=== PATIENT | male | born 1955 | race Caucasian/White ===

== ENCOUNTER 2017-12-17 07:51 | Outpatient (RCR) | payer BC, SELFPAY ==
--- NOTE | 2017-12-17 10:11 | HMH.PTOPEV ---
PT Outpatient Evaluation Rehab PT Outpatient Evaluation Start: 12/17/17 08:05 Freq: Status: Active Protocol: Document 12/17/17 09:59 PHORNE (Rec: 12/17/17 10:11 PHORNE [id number]) Electronically Signed By Lui Vasquez, PT 12/17/17 09:59 Outpatient Therapy Subjective History Subjective History Pt is 62 yowm who presents with c/o vertigo for many years, but much worse over the past few wks. He reports his symptoms are usually worse at night and worse on the left side. He reports some nausea associated with his vertigo. He reports hx of HTN controleld with medication, Krishna tinnitus worse on left, sleep apnea requiring C-PAP, DM-II. Symptom Type Other Symptoms Relieved By Nothing Symptoms Aggravated By Twisting Prior Functional Limitations None Current Functional Limitations None Symptom Description Constant but Variable Level of pain today (0-10) 0 Pain scale - at its worst (0-10) 0 Balance Eval Chief Complaint vertigo Yes Did you feel dizzy, unsteady or faint? Yes Activity at onset constant, but worse with quick head turns. Nystagmus Nystagmus Presence None Oculomotor Gaze Oculomotor Gaze Nml: Vergence Smooth Pursuit VOR Cancellation Cover/Uncover Cross Cover Abn: Saccades [place] Feet Together/Eyes open/Stable Surface pass Feet Together/Eyes Closed/Stable Surface pass Feet Together/Eyes open/Unstable Surface pass Feet Together/Eyes Closed/Unstable pass Surface Outpatient Therapy Assessment Impairments Problems/Impairmments Impaired Balance Prognosis Rehab Potential Fair Clinical Impression Consistent with Diagnosis Yes Short Term Goals Number of Weeks 4 Increase Ability to Walk Yes: with less dizziness. 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
== END 2017-12-17 08:00 | disposition home or self-care (01) ==
LOC: PT 07:51
PROVIDERS: Visit Provider Family Medicine
DX: H81.399 Other peripheral vertigo, unspecified ear (principal)
CPT/HCPCS: 97112; 97163

== ENCOUNTER → 2019-04-24 12:04 | Outpatient (CLI) | payer OTHER, SELFPAY ==
--- NOTE | 2019-04-24 12:32 | XR_ITS ---
PROCEDURE: XR CHEST 2V Patient Age:63Y CLINICAL HISTORY: VIRAL BRONCHITIS Cough and fever COMPARISON: CXR CHEST(2 VIEWS-NOT PORTABLE) from 06/09/2013 FINDINGS: PA and lateral chest performed today The lungs are well expanded and clear with no significant change or new findings when compared to May 2013. The heart is upper normal in size with slight left ventricular configuration. The pulmonary vascularity upper normal in prominence. Stable calcified granuloma towards the right lung base minimal linear scarring is seen at the posterior aspect of lower lobes. Lung monahan reveal no focal infiltrates, suspicious nodules, or pleural effusions. No acute bony abnormalities. Stable IMPRESSION: Stable chest with nothing definitely acute . Lungs clear. Mild hyperexpansion; minor chronic changes Dictated by: Clay Flores MD 04/24/2019 13:30 Electronically signed by Clay Flores MD in [facility] 04/24/2019 13:30
== END ==
PROVIDERS: PCP Family Medicine; Visit Provider Family Medicine
DX: J20.8 Acute bronchitis due to other specified organisms (principal)
CPT/HCPCS: 71046

== ENCOUNTER → 2019-04-29 13:15 | Outpatient (CLI) | payer OTHER, SELFPAY ==
[2019-04-29 13:21] LABS: Adenovirus,PCR Not Detected (NotDetected); Bordetella Pertussis Not Detected (NotDetected); Chlamydophila Pneumoniae, PCR Not Detected (NotDetected); Coronavirus 229E Not Detected (NotDetected); Coronavirus NL63 Not Detected (NotDetected); Coronavirus OC43 Not Detected (NotDetected); Coronovirus HKU1,PCR Not Detected (NotDetected); Human Metapneumovirus Not Detected (NotDetected); Influenza A, PCR Not Detected (NotDetected); Influenza AH1, 2009 Not Detected (NotDetected); Influenza AH1, PCR Not Detected (NotDetected); Influenza AH3,PCR Not Detected (NotDetected); Mycoplasma Pneumoniae, PCR Not Detected (NotDetected); Parainfluenza 1, PCR Not Detected (NotDetected); Parainfluenza 2, PCR Not Detected (NotDetected); Parainfluenza 3, PCR Not Detected (NotDetected); Parainfluenza 4, PCR Not Detected (NotDetected); Respiratory Syncytial Virus Not Detected (NotDetected); Rhinovirus/Enterovirus Not Detected (NotDetected)
[2019-04-29 13:28] LABS: Basophils % 0.2 % (0.1-2.0); Eosinophils # 0.1 K/mm3 (0.0-0.4); Hematocrit 41.2 % (42.0-52.0); Hemoglobin 14.3 g/dL (14.1-18.0); Lymphocytes % 44.1 % (10-50); Mean Corpuscular HGB Conc 34.8 g/dL (31.8-35.4); Mean Corpuscular Hemoglobin 32.2 pg (27.0-31.2); Mean Corpuscular Volume 92.6 fl (80-94); Mean Platelet Volume 8.2 fl (7.4-10.4); Monocytes # 0.2 K/mm3 (0.1-1.0); Monocytes % 9.8 % (1.7-9.3); Neutrophils # 0.9 K/mm3 (1.8-7.8); Neutrophils % 39.9 % (37.0-80.0); Platelet Count 163 K/mm3 (142-424); Red Blood Count 4.45 M/mm3 (4.60-6.20); Red Cell Distribution Width 13.1 % (11.5-17.5); White Blood Count 2.4 K/mm3 (4.8-10.8)
[2019-04-29 15:55] LABS: Influenza B, PCR Detected (NotDetected)
== END ==
PROVIDERS: Visit Provider Family Medicine
DX: J45.909 Unspecified asthma, uncomplicated (principal); J20.8 Acute bronchitis due to other specified organisms
CPT/HCPCS: 36415; 85025; 87486; 87581; 87633; 87798

== ENCOUNTER → 2020-11-06 11:27 | Outpatient (CLI) | payer BC, SELFPAY | PROVIDERS: PCP Family Medicine; Visit Provider Nurse Practitioner | DX: Z20.822 Contact with and (suspected) exposure to COVID-19 (principal) | CPT/HCPCS: C9803; U0003; U0005 ==

== ENCOUNTER → 2020-11-09 08:04 | Outpatient (CLI) | payer BC, SELFPAY | PROVIDERS: PCP Family Medicine; Visit Provider Nurse Practitioner | DX: Z20.822 Contact with and (suspected) exposure to COVID-19 (principal) | CPT/HCPCS: C9803; U0003; U0005 ==

== ENCOUNTER → 2021-05-03 10:16 | Outpatient (CLI) | payer BC, SELFPAY ==
[2021-05-03 10:52] LABS: Basophils # 0.1 K/mm3 (0-0.2); Basophils % 2.1 % (0.1-2.0); Eosinophils # 0.2 K/mm3 (0.0-0.4); Hematocrit 45.6 % (42.0-52.0); Hemoglobin 14.8 g/dL (14.1-18.0); Lymphocytes # 1.4 K/mm3 (0.7-4.5); Lymphocytes % 25.9 % (10-50); Mean Corpuscular HGB Conc 32.4 g/dL (31.8-35.4); Mean Corpuscular Hemoglobin 31.5 pg (27.0-31.2); Mean Corpuscular Volume 97.3 fl (80-94); Mean Platelet Volume 8.7 fl (7.4-10.4); Monocytes # 0.6 K/mm3 (0.1-1.0); Monocytes % 11.4 % (1.7-9.3); Neutrophils % 57.5 % (37.0-80.0); Platelet Count 207 K/mm3 (142-424); Red Blood Count 4.69 M/mm3 (4.60-6.20); Red Cell Distribution Width 13.4 % (11.5-17.5); White Blood Count 5.3 K/mm3 (4.8-10.8)
== END ==
PROVIDERS: PCP Family Medicine; Visit Provider Physician Assistant
DX: Z20.822 Contact with and (suspected) exposure to COVID-19 (principal)
CPT/HCPCS: 36415; 85025; C9803; U0003; U0005

== ENCOUNTER → 2022-08-17 09:34 | Outpatient (CLI) | payer MEDICARE, SELFPAY ==
[2022-08-17 10:23] LABS: Hemoglobin A1C 7.4 % (4.0-6.0)
[2022-08-17 10:25] LABS: Alanine Aminotransferase 33 U/L (12-78); Albumin Level 4.1 g/dl (3.5-5.0); Albumin/Globulin Ratio 1.5 (1.1-1.8); Alkaline Phosphatase 38 U/L (38-126); Anion Gap 13.9 mEq/L (5-15); Aspartate Amino Transferase 37 U/L (17-59); Bilirubin,Total 0.5 mg/dl (0.2-1.3); Blood Urea Nitrogen 17 mg/dl (9-20); Calcium 9.2 mg/dl (8.4-10.2); Carbon Dioxide 29 mmol/L (22.0-30.0); Chloride 102 mmol/L (98-107); Chol/HDL Ratio 3.5 (1-3.5); Cholesterol 146 mg/dl (140-200); Estimated Glomerular Filt Rate 67 ml/min (>60); GFR (African American) 81 ML/MIN (>60); Globulin 2.7 g/dL (1.3-3.2); Glucose 141 mg/dl (74-100); HDL Cholesterol 42 mg/dl (40-60); Potassium 4.9 mmoL/L (3.5-5.1); Sodium 140 mmol/L (136-145); Total Protein,Serum 6.8 g/dl (6.3-8.2); Triglycerides 241 mg/dl (30-150); VLDL Cholesterol 48 mg/dL (0-40)
[2022-08-17 10:42] LABS: Direct LDL Cholesterol 63.22 mg/dL (100-129)
[2022-08-17 10:55] LABS: Prostate Specific Ag Screen 3.6 ng/ml (0.0-4.0)
== END ==
PROVIDERS: PCP Family Medicine; Visit Provider Physician Assistant
DX: E11.9 Type 2 diabetes mellitus without complications (principal); E78.2 Mixed hyperlipidemia; N40.0 Benign prostatic hyperplasia without lower urinary tract symptoms; Z79.84 Long term (current) use of oral hypoglycemic drugs
CPT/HCPCS: 36415; 80053; 80061; 83036; G0103

== ENCOUNTER 2022-11-23 06:46 | Emergency (ER) | payer MEDICARE, OTHER, SELFPAY ==
[2022-11-23 06:55] VITALS: BP 173/89; PULSE 60; RESP 16; TEMP 36.7; O2SAT 97; BMI 27.2
--- NOTE | 2022-11-23 07:06 | PC.NURSE ---
Dr. Melendez at [facility] for pt eval
--- NOTE | 2022-11-23 07:22 | XR_ITS ---
PROCEDURE INFORMATION: Exam: XR Left Humerus Exam date and time: 11/23/2022 7:23 AM Age: 67 years old Clinical indication: Pain; Shoulder; Left; Additional info: L shoulder pain/popping TECHNIQUE: Imaging protocol: Radiologic exam of the left humerus. Views: 2 or more views. COMPARISON: CR Shoulder L 11/23/2022 7:21 AM FINDINGS: Bones/joints: No acute osseous abnormality. No acute fracture. No dislocation. Soft tissues: No significant soft tissue abnormalities. IMPRESSION: No acute abnormality demonstrated.
--- NOTE | 2022-11-23 07:22 | XR_ITS ---
PROCEDURE INFORMATION: Exam: XR Left Shoulder Exam date and time: 11/23/2022 7:21 AM Age: 67 years old Clinical indication: Pain; Shoulder; Left; Additional info: L shoulder pain/popping TECHNIQUE: Imaging protocol: Radiologic exam of the left shoulder. Views: 2 or more views. COMPARISON: CR XR CHEST 2V 04/24/2019 12:27 PM FINDINGS: Bones/joints: No acute osseous abnormality. No evidence of acute fracture or dislocation. [id number] left AC joint arthrosis with hypertrophic bony spurring. Mild left glenohumeral degenerative bony changes. Soft tissues: No significant soft tissue abnormalities. IMPRESSION: Xjpe-qy-[id number] left AC joint arthrosis and degenerative bony changes.
--- NOTE | 2022-11-23 07:26 | HMH.EDGENADL ---
Discharge Plan Disposition Patient Disposition: Home, Self-Care Condition: Good Prescriptions Prescriptions: No Action fenofibrate nanocrystallized 145 mg tablet 145 mg PO DAILY 90 Days Qty: 90 hydrochlorothiazide 12.5 mg tablet 12.5 mg PO DAILY 90 Days Qty: 90 metformin 500 mg tablet extended release 24 hr 500 mg PO BID 90 Days Qty: 180 potassium citrate 15 mEq tablet extended release 15 meq PO BID 90 Days Qty: 180 atorvastatin 20 mg tablet 20 mg PO QHS 90 Days Qty: 90 montelukast 10 mg tablet 10 mg PO QHS 90 Days Qty: 90 multivitamin tablet 1 tab PO QAM cholecalciferol (vitamin D3) 4,000 unit capsule 4,000 unit PO DAILY ipratropium-albuterol 0.5 mg-3 mg(2.5 mg base)/3 mL solution for nebulization 3 ml INHALATION ONCE PRN (Reason: asthma) ipratropium-albuterol 18-103 mcg/actuation aerosol 1 spray INHALATION ONCE PRN (Reason: Nasal Congestion) diphenhydramine HCl [Benadryl] 25 mg capsule 25 mg PO QHS PRN (Reason: allergies) Referrals Follow up/Referrals: Chas Corea DO [Staff Physician] - See instructions (Rotator cuff pathology) Saji Villalobos MD [Primary Care Provider] - See instructions Activity Restrictions/Add. Instructions Additional Instructions/Restrictions: Please follow-up with your primary care provider. Please return to the emergency department if you develop any new or worsening symptoms or become concerned for your health. You have been given follow-up with orthopedic surgery, please call them on Friday to schedule an appointment. As we discussed, you can continue with Tylenol, ibuprofen as needed for pain control. You can also continue to use lidocaine patches. Clinical Impressions Clinical Impression: Left shoulder pain Qualifiers: Chronicity: chronic Qualified Code(s): M25.512 - Pain in left shoulder Instructions Patient Instructions: DI for Shoulder Pain Discharge ED Provider: Roger Melendez I General Adult HPI General Chief complaint: Extremity Injury, Upper Stated complaint: AO 11/22/22 1800 Injury left shoulder Time Seen by Provider: 11/23/22 07:15 Mode of Arrival: Ambulatory Source of Information: Patient and Spouse Limitations: No Limitations Description of Symptoms (Recalled from ER Triage Doc. by RN): Patient states that left shoulder 'poped out' yesterday about 1730 when lifting something. History of Present Illness HPI narrative: Patient is a 67-year-old male with no other medical history presenting to the emergency department with intermittent left shoulder pain, popping for the past several weeks. History was conducted with the patient as well as his at bedside. He reports that several weeks ago while he was lying in bed, initially felt popping in the posterior portion of the left shoulder. He reports that his daughter is an anesthesiologist, reduced his shoulder at home. However, over the past several weeks it has continued to pop in and out and he has had some intermittent left shoulder discomfort. He denies any other associated trauma, falls, other injuries. Patient states that when he was in bed last night, felt a popping sensation in his left shoulder and it has not gone away since that time. He also intermittently has some numbness and tingling in his left pinky finger, is not currently present. Denies any weakness in the left arm. Denies any other symptoms, reports that he is otherwise in his normal state of health. Has not taken any medications at home. Related Data Home Medications Medication Instructions Recorded Confirmed atorvastatin 20 mg tablet 20 mg PO QHS 90 days #90 tabs 08/05/17 11/23/22 cholecalciferol (vitamin D3) 100 4,000 unit PO DAILY 08/05/17 11/23/22 mcg (4,000 unit) capsule diphenhydramine HCl 25 mg capsule 25 mg PO QHS PRN allergies 08/05/17 11/23/22 (Benadryl) fenofibrate nanocrystallized 145 145 mg PO DAILY 90 days ##90 08/05/17 11/23/22 mg tablet
[2022-11-23 08:00] VITALS: BP 153/73; PULSE 55; O2SAT 95
--- NOTE | 2022-11-23 08:05 | PC.NURSE ---
Rounded on pt. Pt provided with pillow. No other needs voiced. Call light within reach.
[2022-11-23 08:30] VITALS: BP 151/75; PULSE 60; O2SAT 96
--- NOTE | 2022-11-23 08:45 | PC.NURSE ---
Dr. Melendez at BS to update pt on POC
[2022-11-23 08:48] VITALS: BP 151/75; PULSE 65; RESP 19; TEMP 36.8; O2SAT 97
== END 2022-11-23 08:55 | disposition home or self-care (01) ==
PROVIDERS: Emergency Provider Emergency Medicine; PCP Family Medicine
DX: M25.512 Pain in left shoulder (principal)
CPT/HCPCS: 73030; 73060; 99283

== ENCOUNTER 2023-01-02 13:00 | Outpatient (RCR) | payer MEDICARE, OTHER, SELFPAY | END 2023-01-02 14:00 | disposition home or self-care (01) | LOC: PT 13:00 | PROVIDERS: PCP Family Medicine; Visit Provider Orthopaedic Surgery | DX: M89.8X1 Other specified disorders of bone, shoulder (principal); M25.512 Pain in left shoulder | CPT/HCPCS: 97010; 97014; 97110; 97140; 97163; 97164; G0283 ==

== ENCOUNTER 2023-01-19 00:33 | Emergency (ER) | payer MEDICARE, OTHER, SELFPAY ==
[2023-01-19] VITALS (15 sets, daily range): BP systolic 40–123; BP diastolic 21–92; PULSE 49–110; RESP 10–29; TEMP 36.8; O2SAT 67–99; BMI 30.1
--- NOTE | 2023-01-19 00:23 | ECG_ITS ---
APPROVED REPORT Exam: Resting ECG HR:93 bpm ECG Measurements Heart Rate 93 AXES MS 175 P 47 QRSd 121 QRS 5 QT 339 T 58 QTc 389 Conclusion SINUS RHYTHM WITH SINUS ARRHYTHMIA MODERATE INTRAVENTRICULAR CONDUCTION DELAY [110+ ms QRS DURATION] ST ELEVATION, PROBABLY EARLY REPOLARIZATION [ST ELEVATION WITH NORMALLY INFLECTED T-WAVE] MODERATE ST DEPRESSION [0.05+ mV ST DEPRESSION] ABNORMAL ECG UNCONFIRMED REPORT Electronically signed by : Myke Resendez MD 01/20/2023 17:40:10
--- NOTE | 2023-01-19 00:34 | PC.NURSE ---
MD requests to prepare for intubation. RT at bedside. v/o received by MD for succ/etomidate. MD utilized glidescope and had good visual on cords per her statement. 7.5 ETT was placed, 28 at the lip without difficulty. colormetric was positive for placement. breath sounds auscultated equally bilaterally.
--- NOTE | 2023-01-19 00:34 | PC.NURSE ---
verbal order received for narcan 2mg ivp prior to intubation. administered without change in mentation noted following
--- NOTE | 2023-01-19 00:38 | CT_ITS ---
PROCEDURE INFORMATION: Exam: CT Head Without Contrast Exam date and time: 01/19/2023 12:48 AM Age: 67 years old Clinical indication: Stroke-like symptoms; Other: Unresponsive; Additional info: Sudden AMS TECHNIQUE: Imaging protocol: Computed tomography of the head without contrast. Radiation optimization: All CT scans at this facility use at least one of these dose optimization techniques: automated exposure control; mA and/or kV adjustment per patient size (includes targeted exams where dose is matched to clinical indication); or iterative reconstruction. Other technique: STROKE PROTOCOL was implemented. REPORTING DATA: Count of CT and Cardiac NM exams in prior 12 months: This patient has received 0 known CTs and 0 known cardiac nuclear medicine studies in the 12 months prior to the current study. COMPARISON: No relevant prior studies available. FINDINGS: Tubes, catheters and devices: NG tube and ET tube partially visualized. Brain: No evidence for intracranial hemorrhage, mass lesions or acute stroke. Intracranial vascular calcifications. Cerebral ventricles: No ventriculomegaly. Pituitary gland and sella: Negative Paranasal sinuses: Visualized sinuses are unremarkable. No fluid levels. Mastoid air cells: Visualized mastoid air cells are well aerated. Orbital cavities: Negative. Parotid and submandibular glands: Negative Bones/joints: Unremarkable. No acute fracture. Soft tissues: Unremarkable. Vasculature: Negative. IMPRESSION: No evidence for intracranial hemorrhage, mass lesions or acute stroke. Intracranial vascular calcifications. NG tube and ET tube partially visualized. ASSESSMENT: ASPECTS (Maggie Stroke Program Early CT Score) is 10.
--- NOTE | 2023-01-19 00:38 | CT_ITS ---
PROCEDURE INFORMATION: Exam: CTA Neck With Contrast Exam date and time: 01/19/2023 12:51 AM Age: 67 years old Clinical indication: Stroke-like symptoms; Altered mental status/memory loss; Additional info: Sudden AMS TECHNIQUE: Imaging protocol: Computed tomographic angiography of the neck with contrast. Exam focused on the cervical segments of the vasculature. 3D rendering (Not supervised by radiologist): MIP and/or 3D reconstructed images were created by the technologist. Radiation optimization: All CT scans at this facility use at least one of these dose optimization techniques: automated exposure control; mA and/or kV adjustment per patient size (includes targeted exams where dose is matched to clinical indication); or iterative reconstruction. Contrast material: ISOVUE; Contrast volume: 75 ml; Contrast route: INTRAVENOUS (IV); REPORTING DATA: Count of CT and Cardiac NM exams in prior 12 months: This patient has received 0 known CTs and 0 known cardiac nuclear medicine studies in the 12 months prior to the current study. COMPARISON: CT ANGIO HEAD 01/19/2023 12:51 AM FINDINGS: Tubes, catheters and devices: NG tube partially visualized. Right common carotid artery: The right common carotid artery contains large false lumen and a diminutive crescentic true lumen. False lumen comprises approximately 90% of the lumen. The upper right common carotid artery is occluded. The right carotid bifurcation shows short-segment reconstitution as does the external carotid artery but the right internal iliac artery is occluded. Right internal carotid artery: No stenosis of the extracranial segment. No dissection or occlusion. Right external carotid artery: No occlusion or stenosis of the origin. Left common carotid artery: The dissection extends into the left common carotid artery with a large false lumen and a diminutive crescentic true lumen image 4/46. The false lumen occupies proximally 80% of the lumen. The dissection ends in the lower left common carotid artery and the upper left common carotid artery is patent. The left carotid bifurcation is patent. The left internal carotid artery is patent. Left internal carotid artery: See Left common carotid artery finding. Left external carotid artery: No occlusion or stenosis of the origin. Right vertebral artery: The right vertebral artery is patent. Left vertebral artery: The left vertebral artery is patent. Brachiocephalic artery: There is a dissection involving the brachiocephalic artery with a very small crescentic true lumen and a large false lumen compromising approximately 80% of the lumen image 4/. Right subclavian artery: High-grade dissection involving the proximal right subclavian artery with luminal compromise of approximately 80%. The more distal right subclavian artery is patent. Left subclavian artery: Dissection extends into the left subclavian artery with the true lumen and false lumen occupying approximately 50% of the lumen respectively. Aorta: Extensive type 1 aortic dissection seen. There is a large eccentric false lumen partially visualized surrounding the ascending aorta, aortic arch, and descending aorta image 4/20. There is moderate dilation of the ascending aorta. Soft tissues: Normal. No significant soft tissue swelling. Bones/joints: No acute fracture. Lungs: Bibasilar atelectasis. Other findings: Motion artifact degrades the images. IMPRESSION: 1. Motion artifact degrades the images. 2. Extensive type 1 aortic dissection seen. There is a large eccentric false lumen partially visualized surrounding the ascending aorta, aortic arch, and descending aorta image 4/20. 3. There is a dissection involving the brachiocephalic viridiana
--- NOTE | 2023-01-19 00:38 | CT_ITS ---
PROCEDURE INFORMATION: Exam: CTA Head With Contrast, Arteriography Exam date and time: 01/19/2023 12:51 AM Age: 67 years old Clinical indication: Stroke-like symptoms; Altered mental status/memory loss; Additional info: Sudden AMS TECHNIQUE: Imaging protocol: Computed tomographic angiography of the head with contrast. Exam focused on the arteries. 3D rendering (Not supervised by radiologist): MIP and/or 3D reconstructed images were created by the technologist. Radiation optimization: All CT scans at this facility use at least one of these dose optimization techniques: automated exposure control; mA and/or kV adjustment per patient size (includes targeted exams where dose is matched to clinical indication); or iterative reconstruction. Contrast material: ISOVUE; Contrast volume: 75 ml; Contrast route: INTRAVENOUS (IV); REPORTING DATA: Count of CT and Cardiac NM exams in prior 12 months: This patient has received 0 known CTs and 0 known cardiac nuclear medicine studies in the 12 months prior to the current study. COMPARISON: CT HEAD/BRAIN WO CON 01/19/2023 12:48 AM FINDINGS: ANTERIOR CIRCULATION: Right internal carotid artery: Right internal carotid artery is occluded. Right middle cerebral artery: No occlusion or significant stenosis. No aneurysm. Right anterior cerebral artery: No occlusion or significant stenosis. No aneurysm. Left internal carotid artery: Intracranial segment is patent with no significant stenosis. No aneurysm. Left middle cerebral artery: There is decreased perfusion of left MCA candelabra branches. There appears to be a left M2 branch occlusion. Left anterior cerebral artery: No occlusion or significant stenosis. No aneurysm. POSTERIOR CIRCULATION: Right vertebral artery: No occlusion or significant stenosis. No aneurysm. Left vertebral artery: No occlusion or significant stenosis. No aneurysm. Basilar artery: No occlusion or significant stenosis. No aneurysm. Right posterior cerebral artery: No occlusion or significant stenosis. No aneurysm. Left posterior cerebral artery: No occlusion or significant stenosis. No aneurysm. Aorta: Extensive multifocal aortic and great vessel dissections as described in the CT neck report. Brain: No definite mass, mass effect, or midline shift. Cerebral ventricles: No ventriculomegaly. Bones/joints: Unremarkable. No acute fracture. Soft tissues: Unremarkable. IMPRESSION: 1. Extensive multifocal aortic and great vessel dissections as described in the CT neck report. 2. Right internal carotid artery is occluded. 3. There is decreased profusion of left MCA candelabra branches. 4. There appears to be a left M2 branch occlusion. 5. Due to the extensive high-grade proximal great vessel dissections there is risk intracranial arterial insufficiency to the . brain
[2023-01-19 00:44] LABS: Microscopic, Urine URINE MICROSCOPIC (MICROSCOPIC)
[2023-01-19 00:47] LABS: Alanine Aminotransferase 34 U/L (12-78); Albumin Level 4.6 g/dl (3.5-5.0); Albumin/Globulin Ratio 1.7 (1.1-1.8); Alkaline Phosphatase 41 U/L (38-126); Anion Gap 17.1 mEq/L (5-15); Aspartate Amino Transferase 42 U/L (17-59); Bilirubin,Total 0.6 mg/dl (0.2-1.3); Blood Urea Nitrogen 18 mg/dl (9-20); Calcium 9.3 mg/dl (8.4-10.2); Carbon Dioxide 23 mmol/L (22.0-30.0); Chloride 100 mmol/L (98-107); Creatinine Clearance Estimated 76 mL/min (50-200); Estimated Glomerular Filt Rate 55 ml/min (>60); GFR (African American) 67 ML/MIN (>60); Globulin 2.7 g/dL (1.3-3.2); Glucose 182 mg/dl (74-100); Potassium 3.1 mmoL/L (3.5-5.1); Sodium 137 mmol/L (136-145); Total Protein,Serum 7.3 g/dl (6.3-8.2)
[2023-01-19 00:48] LABS: Appearance,Urine CLOUDY (Clear); Bilirubin,Urine Negative (Negative); Blood, Urine 3+ (Negative); Color,Urine YELLOW (Yellow); Glucose,Urine (UA) Negative (Negative); Ketones,Urine Negative (Negative); Leukocyte Esterase,Urine Negative (Negative); Nitrate,Urine Negative (Negative); PH,Urine 7.5 (5.0-8.5); Protein,Urine TRACE (Negative)
[2023-01-19 00:51] LABS: VBG Base Excess -4.3 mmol/L (-2.4-2.3); VBG HCO3 22.5 mmol/L (23-30); VBG Oxygen Saturation 87.1 % (50-70); VBG PCO2 49.5 mmol/L (35-51); VBG PH 7.28 mmol/L (7.31-7.41); VBG PO2 59.3 mmol/L (28-40)
--- NOTE | 2023-01-19 00:51 | CT_ITS ---
PROCEDURE INFORMATION: Exam: CTA Chest With Contrast Exam date and time: 01/19/2023 1:00 AM Age: 67 years old Clinical indication: Pain; Additional info: SUSAN Abel TECHNIQUE: Imaging protocol: Computed tomographic angiography of the chest with contrast. Exam focused on the arteries. 3D rendering (Not supervised by radiologist): MIP and/or 3D reconstructed images were created by the technologist. Radiation optimization: All CT scans at this facility use at least one of these dose optimization techniques: automated exposure control; mA and/or kV adjustment per patient size (includes targeted exams where dose is matched to clinical indication); or iterative reconstruction. Contrast material: ISOVUE; Contrast volume: 100 ml; Contrast route: INTRAVENOUS (IV); REPORTING DATA: Count of CT and Cardiac NM exams in prior 12 months: This patient has received 0 known CTs and 0 known cardiac nuclear medicine studies in the 12 months prior to the current study. COMPARISON: CR XR CHEST 2V 04/24/2019 12:27 PM FINDINGS: Limitations: Limited exam due to patient motion artifact. Tubes, catheters and devices: Endotracheal tube lies 2 cm above the henna. Pulmonary arteries: No central pulmonary embolism is seen. Pulmonary arteries beyond the lobar pulmonary artery level are not well visualized due to poor contrast opacification and excessive motion. Great vessels off aortic arch: The dissection extends into both common carotid arteries and left innominate artery but evaluation is limited by poor contrast opacification and motion. Aorta: The aortic root is aneurysmal measuring 4.5 cm in diameter. No periaortic hematoma is seen. Lungs: Dependent atelectasis in both lungs. Calcified granuloma in the right upper lobe. No masses. Pleural spaces: No pneumothorax. No pleural effusion. Heart: Type 1/type a dissection of the thoracic aorta extending from the level of the aortic valves through the aortic arch into the descending thoracic aorta and abdominal aorta. Mild cardiomegaly. No pericardial effusion or hemopericardium. Coronary arteries: Three-vessel coronary artery atherosclerotic disease. Lymph nodes: Unremarkable. No enlarged lymph nodes. Stomach and bowel: Nasogastric tube extends into the stomach. Bones/joints: Advanced degenerative spondylosis. Normal alignment. Soft tissues: Unremarkable. IMPRESSION: 1. Motion limited exam. 2. Type 1/type a dissection of the aorta extending from the level of the aortic valves into the abdominal aorta. 3. 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 4. Three-vessel coronary artery atherosclerotic disease. 5. Endotracheal tube lies 2 cm above the henna. Findings were discussed with Sheyla Lugo at 2:10 AM EST on 01/19/2023.
[2023-01-19 01:00] LABS: Barbiturates Screen,Urine Negative ng/ml (<200); Benzodiazepines Screen,Urine Negative ng/ml (<200)
--- NOTE | 2023-01-19 01:00 | PC.NURSE ---
taken to ct. fish housekeeper and 2 additional RN's at bedside
[2023-01-19 01:01] LABS: Amphetamine/Metha Screen,Urine Negative ng/ml (<1000); Bacteria,Urine Trace /lpf; RBC,Urine 50-100 #/hpf (0-3)
[2023-01-19 01:02] LABS: Cocaine Screen,Urine Negative ng/ml (<300); Methadone Screen,Urine Negative ng/ml (<300)
[2023-01-19 01:03] LABS: Cannabinoid Screen,Urine Negative ng/ml (<50)
[2023-01-19 01:04] LABS: Phencyclidine Screen,Urine Negative ng/ml (<25)
[2023-01-19 01:04] LABS: Troponin I < 0.01 ng/ml (0.00-0.034)
[2023-01-19 01:05] LABS: Basophils # 0.1 K/mm3 (0-0.2); Basophils % 0.6 % (0.1-2.0); Eosinophils # 0.4 K/mm3 (0.0-0.4); Eosinophils % 3.5 % (0.1-12.0); Hematocrit 46.8 % (42.0-52.0); Hemoglobin 15.6 g/dL (14.1-18.0); Lymphocytes % 57.3 % (10-50); Mean Corpuscular HGB Conc 33.4 g/dL (31.8-35.4); Mean Corpuscular Hemoglobin 32.2 pg (27.0-31.2); Mean Corpuscular Volume 96.5 fl (80-94); Mean Platelet Volume 8.6 fl (7.4-10.4); Monocytes # 0.5 K/mm3 (0.1-1.0); Monocytes % 4.6 % (1.7-9.3); Neutrophils # 3.5 K/mm3 (1.8-7.8); Platelet Count 210 K/mm3 (142-424); Red Blood Count 4.85 M/mm3 (4.60-6.20); Red Cell Distribution Width 13.4 % (11.5-17.5); White Blood Count 10.4 K/mm3 (4.8-10.8)
[2023-01-19 01:05] LABS: Opiate Screen,Urine Negative ng/ml (<300)
--- NOTE | 2023-01-19 01:05 | PC.NURSE ---
formerly [facility] [place] calls for Dr Enriquez to come and look at scans as he thinks he sees something suspicious on the images.
[2023-01-19 01:06] LABS: MANUAL DIFFERENTIAL MANUAL DIFFERENTIAL (MANUAL DIFF)
[2023-01-19 01:07] LABS: Acetaminophen < 10 ug/ml (10-30); Salicylate < 1.0 mg/dL (2.0-20.0)
--- NOTE | 2023-01-19 01:11 | CT_ITS ---
PROCEDURE INFORMATION: Exam: CTA Abdomen and Pelvis With Contrast Exam date and time: 01/19/2023 1:14 AM Age: 67 years old Clinical indication: Pain; Additional info: Aaa TECHNIQUE: Imaging protocol: Computed tomographic angiography of the abdomen and pelvis with contrast. Exam focused on the arteries. 3D rendering (Not supervised by radiologist): MIP and/or 3D reconstructed images were created by the technologist. Radiation optimization: All CT scans at this facility use at least one of these dose optimization techniques: automated exposure control; mA and/or kV adjustment per patient size (includes targeted exams where dose is matched to clinical indication); or iterative reconstruction. Contrast material: ISOVUE; Contrast volume: 100 ml; Contrast route: INTRAVENOUS (IV); REPORTING DATA: Count of CT and Cardiac NM exams in prior 12 months: This patient has received 0 known CTs and 0 known cardiac nuclear medicine studies in the 12 months prior to the current study. COMPARISON: CT ANGIO CHEST 01/19/2023 1:00 AM FINDINGS: Tubes, catheters and devices: There is a nasogastric tube in the stomach. Lungs: There is extensive dense airspace consolidation in both lower lobes which has worsened since the prior exam. Aorta: Dissection of the distal thoracic aorta extending into the suprarenal and infrarenal abdominal aorta. The distal extent of the dissection is not well visualized however due to poor arterial contrast opacification. No aortic aneurysm. 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 Dissection at the origin of the SMA without significant SMA stenosis or occlusion. The ELIZABETH is unremarkable but is not well evaluated on this exam or the prior CTA. Renal arteries: The renal arteries are patent. The left renal artery arises from the aortic false lumen. Right iliac arteries: No occlusion or significant stenosis. Left iliac arteries: No occlusion or significant stenosis. Liver: No mass. Gallbladder and bile ducts: Status post cholecystectomy. No biliary duct dilation. Pancreas: Unremarkable. No mass. No ductal dilation. Spleen: Multiple calcified granulomas in the spleen. No splenomegaly. Adrenal glands: Unremarkable. No mass. Kidneys and ureters: Simple cysts in both kidneys. There is hypoperfusion of the left kidney without significant contrast excretion from the left kidney. No hydronephrosis. Stomach and bowel: The stomach is distended with a large amount of fluid and air. No obstructing gastric mass or inflammatory changes. Colon and small bowel are unremarkable. No signs of ischemia or obstruction. Appendix: No evidence of appendicitis. Intraperitoneal space: Unremarkable. No free air. No significant fluid collection. Lymph nodes: Unremarkable. No enlarged lymph nodes. Urinary bladder: Urinary bladder is decompressed by a Perdomo catheter. Reproductive: Unremarkable as visualized. Bones/joints: Advanced degenerative changes in the spine and pelvis. 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 Soft tissues: Unremarkable. IMPRESSION: 1. Thoracic aortic dissection extending into the abdominal aorta. No aortic aneurysm. Evaluation of the aorta is limited by poor arterial contrast opacification and distal dissection is not well visualized. 2. 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 3. Hypoperfusion of the left kidney with the left renal artery arising from the aortic false lumen. 4. Worsening dense airspace consolidation in both lung bases suggesting aspiration. 5. Mildly distended stomach. No obstructing mass or inflammatory
--- NOTE | 2023-01-19 01:14 | PC.NURSE ---
Dr Enriquez orders for BP systolic >90 <140
--- NOTE | 2023-01-19 01:35 | PC.NURSE ---
levophed at 8mcg. blood pressure unresponsive. increased to 12
--- NOTE | 2023-01-19 01:38 | PC.NURSE ---
increased levophed to 16.
--- NOTE | 2023-01-19 01:44 | PC.NURSE ---
increased levophed to 18
--- NOTE | 2023-01-19 01:46 | PC.NURSE ---
increased levophed to 24
--- NOTE | 2023-01-19 01:48 | PC.NURSE ---
increased levophed to 30 at this time.
[2023-01-19 01:50] LABS: Eosinophils % 4 % (0-3); Lymphocytes % 58 % (10-50); Monocytes % 6 % (2-9); Neutrophils % 32 % (42-76); Platelet Estimate Normal; RBC Morphology Normal; Total Cells Counted 100
--- NOTE | 2023-01-19 01:50 | PC.NURSE ---
Pt Manual BP 70/30, HR 112 on monitor, pt mottling increasing, femoral pulse not palpable, CPR in progress, Dr Enriquez at bedside.
--- NOTE | 2023-01-19 01:51 | PC.NURSE ---
pt found to be without pulse, rhythm PEA; vs:139/90, 98,99% on mechanical vent, rectal temp 99.1. CPR initiated and acls protocols followed. Received verification of pulse return after 4 mins of CPR and 1 dose of epinephrine. on phone with , accepted by Dr Greenwood.
--- NOTE | 2023-01-19 02:00 | PC.NURSE ---
Lab at bedside with 2 units of emergently ordered blood. Blood given per Brit Garcia RN and Mayelin Humphreys RN via rapid transfusion. Blood given per Sheyla Enriquez's order for fluid volume replacement.
--- NOTE | 2023-01-19 02:03 | PC.NURSE ---
[facility] declined as well. no available truck to transport. powerhouse mechanic helper is discussing with craft center director, meghna javier,rn. Direct discussion with santana Porter-p for EMS (and [facility]) results in them working on getting a truck. Discussed possibly sending a truck with 2 emt's and an RN from the ER. Also discussing this with DON via Numerical Control Router Operator, Gina.
--- NOTE | 2023-01-19 02:08 | PC.NURSE ---
call placed to [facility] to see if they could transport patient. declined due to weather. call immediately placed to [facility] [phone]. spoke with dorothy.
--- NOTE | 2023-01-19 02:10 | PC.NURSE ---
hayden hancock md, critical results received
[2023-01-19 02:12] LABS: ABG Base Excess -20.7 mmol/L (-2.4-2.3); ABG Oxygen Saturation 60 % (90-100); ABG PO2 50.9 mmhg (80-100); ABG TCO2 15.3 mmhg (23-27)
[2023-01-19 02:13] LABS: Oxygen 100 %; Tidal Volume 440
[2023-01-19 02:14] LABS: ABG PH 6.85 mmol/L (7.35-7.45); Allen's Test Y; PEEP 5; Source Right Radial; Vent Rate 18
[2023-01-19 02:15] LABS: ABG PCO2 75.4 mmhg (35.0-45.0)
--- NOTE | 2023-01-19 02:27 | PC.NURSE ---
0151- Pt lost pulse, CPR started, Code Blue called, 1mg epi given 0153- Pulse check, femoral pulse palpated, Sinus rhythm with PVC's on monitor
--- NOTE | 2023-01-19 02:28 | PC.NURSE ---
decreased levophed per md request of maintaining bp between 90-120 systolic.
--- NOTE | 2023-01-19 02:32 | PC.NURSE ---
0232 patient given atropine per nursing for sustained bradycardia without improvement. found patient to be pulseless and cpr was initiated. 0233 1mg epinephrine given, rhythm PEA 0234 cpr continues 0236 return of ROSC. SB @ 44bpm. 1mg of atropine given per acls protocols for bradycardia. 0238 patient found to be pulseless again and cpr was initiated, MD at bedside. ACLS protocols continue while MD speaks with family. 0240 Family tells MD to stop cpr and resuscitative efforts. 0244 bp 0/0, hr 0,rr 0. No viable signs of life. Time of called by Sheyla Enriquez MD.
--- NOTE | 2023-01-19 02:51 | PC.NURSE ---
called [facility] to inform them of canceling transfer
--- NOTE | 2023-01-19 03:04 | PC.NURSE ---
human relations manager production miner paged via dispatch.
--- NOTE | 2023-01-19 03:05 | PC.NURSE ---
call placed to [facility], spoke jennifer
--- NOTE | 2023-01-19 03:14 | PC.NURSE ---
body released by [facility]. case # [id number]. spoke with amarjit clemens
--- NOTE | 2023-01-19 03:30 | PC.NURSE ---
Pillowcase Cleaner here, speaking with family at this time
--- NOTE | 2023-01-19 04:04 | HMH.EDGENADL ---
Discharge Plan Disposition Patient Disposition: Xfer Short-Term Hosp Condition: Critical Prescriptions Prescriptions: No Action fenofibrate nanocrystallized 145 mg tablet 145 mg PO DAILY 90 Days Qty: 90 hydrochlorothiazide 12.5 mg tablet 12.5 mg PO DAILY 90 Days Qty: 90 metformin 500 mg tablet extended release 24 hr 500 mg PO BID 90 Days Qty: 180 potassium citrate 15 mEq tablet extended release 15 meq PO BID 90 Days Qty: 180 atorvastatin 20 mg tablet 20 mg PO QHS 90 Days Qty: 90 montelukast 10 mg tablet 10 mg PO QHS 90 Days Qty: 90 multivitamin tablet 1 tab PO QAM cholecalciferol (vitamin D3) 4,000 unit capsule 4,000 unit PO DAILY ipratropium-albuterol 0.5 mg-3 mg(2.5 mg base)/3 mL solution for nebulization 3 ml INHALATION ONCE PRN (Reason: asthma) ipratropium-albuterol 18-103 mcg/actuation aerosol 1 spray INHALATION ONCE PRN (Reason: Nasal Congestion) diphenhydramine HCl [Benadryl] 25 mg capsule 25 mg PO QHS PRN (Reason: allergies) Referrals Follow up/Referrals: Provider,Referral, MD [Primary Care Provider] - See instructions Stand Alone Forms Stand Alone Forms: Transfer Record - ED Instructions Patient Instructions: DI for Altered Mental Status Discharge ED Provider: Sheyla Enriquez General Adult HPI General Chief complaint: Altered Mental Status Stated complaint: unresponsive Time Seen by Provider: 01/19/23 00:54 Mode of Arrival: Family Vehicle Source of Information: Relative Limitations: Altered Mental Status Description of Symptoms (Recalled from ER Triage Doc. by RN): 67 yo male presents with cc of unresponsive , arriving in the back seat of a family members truck. Patient unable to verbalize complaint. family member states he was having trouble breathing and called ems for response for CP, they didn't want to wait, and they took him to the firestation, where they proceeded to bring him on to the hospital. as they pulled in, he collapsed over. History of Present Illness HPI narrative: Patient is a 67-year-old male with previous medical history of hypertension presenting to the emergency department by private vehicle unresponsive. Patient was reportedly in his normal state of health today, ambulatory and alert, and suddenly at approximately 11:30 PM began having chest pain and collapsed. He has been unresponsive since that time. His daughter was concerned that he may have some possible seizure activity. Family denies drug or alcohol use. Related Data Home Medications Medication Instructions Recorded Confirmed atorvastatin 20 mg tablet 20 mg PO QHS 90 days #90 tabs 08/05/17 11/23/22 cholecalciferol (vitamin D3) 100 4,000 unit PO DAILY 08/05/17 11/23/22 mcg (4,000 unit) capsule diphenhydramine HCl 25 mg capsule 25 mg PO QHS PRN allergies 08/05/17 11/23/22 (Benadryl) fenofibrate nanocrystallized 145 145 mg PO DAILY 90 days ##90 08/05/17 11/23/22 mg tablet hydrochlorothiazide 12.5 mg tablet 12.5 mg PO DAILY 90 days #90 tabs 08/05/17 11/23/22 ipratropium 0.5 mg-albuterol 3 mg 3 ml inhalation ONCE PRN asthma 08/05/17 11/23/22 (2.5 mg base)/3 mL nebulization soln ipratropium 18 mcg-albuterol 103 1 spray inhalation ONCE PRN Nasal 08/05/17 11/23/22 mcg/actuation aerosol inhaler Congestion metformin 500 mg tablet,extended 500 mg PO BID 90 days #180 tabs 08/05/17 11/23/22 release 24 hr montelukast 10 mg tablet 10 mg PO QHS 90 days #90 tabs 08/05/17 11/23/22 multivitamin 1 tab PO QAM 08/05/17 11/23/22 potassium citrate 15 mEq (1,620 15 meq PO BID 90 days #180 tabs 08/05/17 11/23/22 mg) tablet,extended release Allergies Allergy/AdvReac Type Severity Reaction Status Date / Time gatifloxacin [From TEQUIN] Allergy Unknown Verified 10/28/17 12:03 [facility] Disclaimer: The information contained in this section may have been updated after the patient was seen, as this information can be updated by other users.
--- NOTE | 2023-01-19 04:19 | PC.NURSE ---
family in room, drinks offered awaiting home
--- NOTE | 2023-01-19 05:10 | PC.NURSE ---
body left with Gama [facility], representing [facility].
--- NOTE | 2023-01-19 07:29 | HMH.EDGENADL ---
Discharge Plan Disposition Patient Disposition: Date/Time: 01/19/23 02:44 Clinical Impressions Clinical Impression: Acute ischemic stroke, Lactate blood increase, Chronic hypertension, Unresponsiveness Aortic dissection Qualifiers: Aortic location: thoracoabdominal aorta Qualified Code(s): I71.03 - Dissection of thoracoabdominal aorta Discharge ED Provider: Sheyla Enriquez General Adult HPI General Chief complaint: Altered Mental Status Stated complaint: unresponsive Time Seen by Provider: 01/19/23 00:54 Mode of Arrival: Family Vehicle Source of Information: Relative Limitations: Altered Mental Status Description of Symptoms (Recalled from ER Triage Doc. by RN): 67 yo male presents with cc of unresponsive , arriving in the back seat of a family members truck. Patient unable to verbalize complaint. family member states he was having trouble breathing and called ems for response for CP, they didn't want to wait, and they took him to the firestation, where they proceeded to bring him on to the hospital. as they pulled in, he collapsed over. Related Data Home Medications Medication Instructions Recorded Confirmed atorvastatin 20 mg tablet 20 mg PO QHS 90 days #90 tabs 08/05/17 11/23/22 cholecalciferol (vitamin D3) 100 4,000 unit PO DAILY 08/05/17 11/23/22 mcg (4,000 unit) capsule diphenhydramine HCl 25 mg capsule 25 mg PO QHS PRN allergies 08/05/17 11/23/22 (Benadryl) fenofibrate nanocrystallized 145 145 mg PO DAILY 90 days ##90 08/05/17 11/23/22 mg tablet hydrochlorothiazide 12.5 mg tablet 12.5 mg PO DAILY 90 days #90 tabs 08/05/17 11/23/22 ipratropium 0.5 mg-albuterol 3 mg 3 ml inhalation ONCE PRN asthma 08/05/17 11/23/22 (2.5 mg base)/3 mL nebulization soln ipratropium 18 mcg-albuterol 103 1 spray inhalation ONCE PRN Nasal 08/05/17 11/23/22 mcg/actuation aerosol inhaler Congestion metformin 500 mg tablet,extended 500 mg PO BID 90 days #180 tabs 08/05/17 11/23/22 release 24 hr montelukast 10 mg tablet 10 mg PO QHS 90 days #90 tabs 08/05/17 11/23/22 multivitamin 1 tab PO QAM 08/05/17 11/23/22 potassium citrate 15 mEq (1,620 15 meq PO BID 90 days #180 tabs 08/05/17 11/23/22 mg) tablet,extended release Allergies Allergy/AdvReac Type Severity Reaction Status Date / Time gatifloxacin [From TEQUIN] Allergy Unknown Verified 10/28/17 12:03 [facility] Disclaimer: The information contained in this section may have been updated after the patient was seen, as this information can be updated by other users. Social History Smoking Status: Unknown if ever smoked alcohol intake: never counseling provided: provider counseling substance use type: denies use current occupational status: other Travel in the last 8 weeks: None Physical Exam General General appearance: other Medical Decision Making Vital Signs: 01/19/23 00:40 01/19/23 01:38 01/19/23 01:48 Temperature 98.3 F Temperature Source Oral Pulse Rate 104 H 67 Pulse Rate [Right Brachial] 49 L Respiratory Rate 10 L 28 H 26 H TAR Vitals Timing Blood Pressure 108/92 L 94/69 L Blood Pressure [Right Arm] 115/83 Blood Pressure Mean 95 74 Blood Pressure Mean [Right Arm] 93 Blood Pressure Source Blood Pressure Source [Right Arm] Automatic Cuff Blood Pressure Position Blood Pressure Position [Right Arm] Sitting 02 Sat by Pulse Oximetry 99 84 L 86 L Oxygen Delivery Method Room Air Mechanical Ventilation Mechanical Ventilation 01/19/23 01:51 01/19/23 01:55 01/19/23 02:00 Temperature Temperature Source Pulse Rate 110 H 52 L 51 L Pulse Rate [Right Brachial] Respiratory Rate 27 H 24 25 H TAR Vitals Timing Blood Pressure 85/46 L 90/66 L 83/61 L Blood Pressure [Right Arm] Blood Pressure Mean 59 71 65 Blood Pressure Mean [Right Arm] Blood Pressure Source Blood Pressure Source [Right Arm] Bloo
--- NOTE | 2023-02-26 17:40 | EXP.DEATH.NO ---
Pronouncement Note Date and Time of Date of : 01/19/23 Time of : 02:44 PCOD Preliminary cause of : Aortic aneurysm and dissection Contributing Factors (1) Hypertension: (2) Acute ischemic stroke: (3) Aortic dissection: Summary Additional details: Patient was noted by loved ones to have chest pain and immediately collapsed and become unresponsive. He was brought in by personal vehicle and transferred to a critical care room where he was found to be unresponsive with GCS 3, initially normotensive with normal oxygen saturation on [id number] ventilation. This required intubation and then emergent CT scans that showed aortic dissection of the entire thoracic and abdominal aorta with associated dissection of the bilateral carotid arteries with associated bilateral ischemic stroke. Unfortunately patient decompensated rapidly in the emergency department while awaiting transfer and consultation from outside hospital. Patient lost a pulse and initiated ACLS. After discussion with family and after multiple rounds of ACLS, family agreed to discontinue resuscitative efforts and almost immediately after chest compressions were discontinued patient at 2:44 AM. Additional Data Confirmation of : no pulse, no respirations, no heart sounds and pupils fixed and dilated Family: at bedside Attending/PCP notified?: Yes Attending physician: Sheyla Enriquez MD Was code activated?: Yes Autopsy requested?: No wrapper layer and examiner soft work notified?: No Organ bank notified?: Yes Advance directives: No
== END 2023-01-19 07:06 | disposition expired ==
PROVIDERS: Emergency Provider Emergency Medicine
DX: I71.010 Dissection of ascending aorta (principal); I71.012 Dissection of descending thoracic aorta; R07.9 Chest pain, unspecified; R41.82 Altered mental status, unspecified; I63.9 Cerebral infarction, unspecified
CPT/HCPCS: 31500; 51702; 70450; 70496; 70498; 71275; 74174; 80053; 80305; 80329; 81001; 82803; 84484; 85007; 85025; 86850; 92950; 93005; 96361; 96374; 96375; 99291; J0330; J2310; P9016; Q9967